=== PATIENT | male | born 1975 | race African-American/Black ===

== ENCOUNTER 2021-07-07 20:36 | Emergency (ER) | payer MEDICAID, OTHER ==
[~2021-07-07] VITALS: Ht 177.8 cm; Wt 77.0 kg
[2021-07-07] MEDS ORDERED: LIDOCAINE/PRILOCAINE CREAM 5 GM TUBE TOP STA (22:16)
[2021-07-07] MEDS ORDERED: CIPHCO RIGHT EAR (22:36)
[2021-07-08 00:15] VITALS: BP 112/82
== END 2021-07-08 00:18 | disposition home or self-care (01) ==
LOC: ER 20:36
DX: H92.02 Otalgia, left ear (principal)
CPT/HCPCS: 99281